=== PATIENT | male | born 1970 | race Two or more races ===

== ENCOUNTER 2020-04-16 10:09 | Emergency (ER) | payer OTHER ==
[~2020-04-16] VITALS: Ht 170.2 cm; Wt 79.8 kg
[2020-04-16] MEDS ORDERED: LABETALOL HCL100 MG PO (10:15)
[2020-04-16] MEDS ORDERED: HYDROCHLOROTHIA25 MG PO (21:43)
== END 2020-04-16 21:56 | disposition home or self-care (01) ==
LOC: ER 10:09
DX: R07.89 Other chest pain (principal); I10 Essential (primary) hypertension; R51.9 Headache, unspecified